=== PATIENT | female | born 1985 | race Caucasian/White ===

== ENCOUNTER 2017-03-01 05:35 | Emergency (ER) | payer OTHER ==
--- NOTE | 2017-03-01 07:22 | ED CLINICAL REPORT ---
Clinical Report - Physicians/Mid Levels [facility] [address] [place] [place] [address] 03/01/2017 5:35 [id number] Time Seen: 05:41 Mar 01 2017. Arrived- By private vehicle. Historian- patient. CPT: ER phys charges level 4 (#[id number]). HISTORY OF PRESENT ILLNESS Chief Complaint: ALLERGIC REACTION. This started today and is still present. The patient has had difficulty breathing, itching and swelling. A possible cause has been identified. She was recently exposed to food (as possible allergen) - (peppers). The patient was not assessed by EMS prior to arrival. (Took zyrtec at home and is feeling better.). Similar symptoms previously: As bad. Recent medical care: Not recently seen/assessed. REVIEW OF SYSTEMS No eye problems, sore throat, cough, sputum production or fever. No chills, joint pain, enlarged lymph nodes, weakness or numbness. No chest pain, palpitations, abdominal pain, vomiting or black stools. No urinary frequency or pain with urination. All systems otherwise negative, except as recorded above. PAST HISTORY Prior allergic reaction. Sinusitis. Eustachian Tube Dysfunction. Back Pain. Numbness to face after taking diclofenac.. Headache [RuleOut]. Stubbs's Palsy [RuleOut]. Depression [RuleOut]. Suicidal Ideation [RuleOut]. ADDITIONAL SURGERIES: . Tubal Ligation. Medications: None. Allergies: Augmentin. SOCIAL HISTORY Never smoker. Occasional alcohol use. No drug use. ADDITIONAL NOTES The nursing notes have been reviewed. PHYSICAL EXAM Vital Signs: 03/01/2017 05:37 BP: 134/79. HR: 87. RR: 20. O2 saturation: 100%. Temp: 98.4 F. Pain level now: 0/10. Appearance: Alert. No acute distress. Head and Neck: Normal external inspection. Eyes: Pupils equal, round and reactive to light. ENT: Ears normal. Nose normal. Pharynx normal. Voice normal. Neck: Neck supple. CVS: Normal heart rate and rhythm. Heart sounds normal. Respiratory: No respiratory distress. Breath sounds normal. No stridor or wheezes. Abdomen: Nontender. Skin: Skin warm. Extremities: Normal external inspection. Extremities nontender. Skin: Normal skin color. No rash. No urticaria. Neuro: Oriented X 3. No motor deficit. No sensory deficit. PROGRESS AND PROCEDURES Course of Care: Pt given meds due to sensation of swelling in the throat. Heplock Solumedrol 80 mg IV famotadine 40 mg IV Patient is stable. Symptoms much better. Patient/family counseled. Disposition: Discharged. Condition: stable and improved. CLINICAL IMPRESSION Allergic reaction with skin rash and angioedema secondary to food and peppers. INSTRUCTIONS Do not work for two days until better. (continue zyrtec for 2 days.). Prescription Medications: prednisone 40 mg a day for 2 days. Famotidine 40 mg po q day for 2 days. Follow-up: Follow up with your doctor in three days if not better. Understanding of the discharge instructions verbalized by patient and family. (Electronically signed by Andrea Palm MD 03/04/2017 21:16)
--- NOTE | 2017-03-01 07:22 | ED ORDER SUMMARY ---
..... Patient: GUI HERNÁNDEZ [facility]Sheet [facility] VisitID: [id number] [address] [place] [address] 31y, F Registration Date/Time: 03/01/2017 ORDER SHEET Weight: 97.0 kg (stated) Allergies: Augmentin GENERAL ORDERS: MEDICATION ORDERS: IV FLUIDS: Solu-MEDROL IV 80 mg (NOW) (05:03/01/2017 Tiago SHARPE) (Ack 5:43 HSoule) (5:55 HSoule) IV Saline Lock (:03/01/2017 Tiago SHARPE) (5:43 HSoule) Famotidine IV 40 mg/50mL (NOW) (:03/01/2017 Tiago SHARPE) (Ack 5:43 HSoule) (5:58 HSoule) ORDER SHEET NOTES: [Electronically signed by Kasia Ireland (23:49 03/01/2017)] [Electronically signed by Andrea Palm MD (21:16 03/04/2017)] [Electronically locked/signed by Kasia Ireland (23:49 03/01/2017)]
--- NOTE | 2017-03-01 07:22 | ED NURSING NOTES ---
Clinical Report - Nurses [facility] [address] [place] [address] 03/01/2017 5:35 [id number] TRI[facility] Triage time 05:37 Mar 01 2017. Acuity: LEVEL 3. Chief Complaint: ALLERGIC REACTION and SWELLING and DIFFICULTY BREATHING 05:42 03/01/17. ( Provider called to bedside). SEPSIS SCREEN: Sepsis Screen: negative. Negative (no infection suspected/documented). --05:42 Kasia Ireland 05:37 03/01/17. BP: 134/79. HR: 87. RR: 20. O2 saturation: 100% on room air. Temp: 98.4 F (oral). Pain level now: 0/10. --05:42 Kasia Ireland. Weight: 97 kg stated. Height/Length: 64 inches Per Patient. BMI: 36.7. --05:41 Kasia Ireland. Medications None. --05:39 Kasia Ireland. Medication/allergy information source: the patient. --05:42 Kasia Ireland. Allergies Augmentin. --05:40 Kasia Ireland. History Arrived by private vehicle. Historian: patient. Accompanied by family. Primary physician ([facility]). This started just prior to arrival. 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 She states last night she had a que pepper sauce that she believes had jalapeno in. Patient reports lip swelling and throat swelling that began around 0430 am. She states she took zyrtec and called family to bring her here. She denies previous anaphylaxis.). She has had itching and difficulty breathing. Treatment DIRECTOR OF PATIENT SAFETY: (zyrtec). PAST MEDICAL HX: Immunizations: up-to-date. Last normal menstrual period now. SOCIAL HX: Never smoker. Occasional alcohol use. No drug use. No infectious disease exposure. ABUSE ASSESSMENT: No report of abuse. FALL RISK ASSESSMENT: Fall risk assessment completed. No fall risk identified. NUTRITIONAL RISK ASSESSMENT: The nutritional risk assessment revealed no deficiencies. FUNCTIONAL ASSESSMENT: Functional assessment: no impairments noted. LEARNING NEEDS ASSESSMENT: The learning needs assessment revealed no barriers. SKIN INTEGRITY ASSESSMENT: Skin integrity risk assessment completed. No skin integrity risk identified. --05:42 Kasia Ireland. PROBLEMS: Sinusitis. Eustachian Tube Dysfunction. Back Pain. Numbness to face after taking diclofenac.. --05:40 Kasia Ireland Headache [RuleOut]. Stubbs's Palsy [RuleOut]. Depression [RuleOut]. Suicidal Ideation [RuleOut]. --05:40 Kasia Ireland. ADDITIONAL SURGERIES: . Tubal Ligation. --05:40 Kasia Ireland. Interventions ID band on patient. To treatment room. --05:42 Kasia Ireland. PHYSICAL ASSESSMENT Patient gowned. GENERAL / NEURO / PSYCH: Alert. The patient does not appear to be in acute distress. Oriented X 4. HEENT: No pharyngeal erythema. No facial swelling. Mucous membranes are pink. RESPIRATORY: Respirations not labored. Breath sounds within normal limits. CVS: Normal sinus rhythm noted. SKIN: Skin is intact, warm and dry. No skin rash. --05:43 Kasia Ireland. NURSING PROGRESS NOTES 05:43 03/01/2017 Site #1 started via IV in the right antecubital space with an 20g angiocath, with aseptic technique and good blood return; one attempt. Blood drawn: rainbow set. Labeled in the presence of the patient and held. Saline lock flushed with 10 mL saline. --05:43 Kasia Ireland 05:43 03/01/17. tipple greaser, pulse oximeter and NIBP monitor placed on patient; monitor alarms on. Patient gowned. Reassurance given to the patient. Two patient identifiers checked. Call light placed in reach. Side rails up x 1. Bed placed in lowest position. Brakes of bed on. Patient ready for evaluation- chart flagged and ED physician notified. --05:43 Kasia Ireland 05:55 03/01/2017 SOLU-MEDROL (MethylPREDNISolone Sodium Succ) IVP 80 mg given over 2 minute(s) via site #1. Allergies verified and confirmed 5 rights. IV patency established. IV site checked: no pain, redness, or swelling. IV flushed thoroughly pre- and post-medication administration. IVP given by RN. --05:55 Kasia Ireland 05:58 03/01/2017 Started 20 mg of Famotidine IVPB in bag #1 50 mL; at 25 mL/hr over 30 minute(s) via site #1 via IV pump. Allergies verified and confirmed 5 rights. --05:58 Kasia Ireland Reassessment after medication administered. Overall patient status- she states feels better. --06:21 Kasia Ireland 06:21 03/01/17. BP: 119/68. HR: 70. RR: 20. O2 saturation: 100% on room air. --06:21 Kasia Ireland. DISPOSITION / DISCHARGE 07:42 03/01/17. Condition at departure: improved and stable. No learning barriers present. Reviewed medication(s) side effects, precautions, dosing and course information. Prescription(s) given to the patient. Work note given. Patient and spouse verbalized understanding. Written instructions provided in Belgian. The patient was discharged by the physician. She was discharged home and accompanied by spouse. She left the Emergency Department ambulatory and via private vehicle. Spouse driving. --07:42 Ruthie Tahyer R.N. 07:39 03/01/17. BP: 117/89. HR: 90. RR: 16. O2 saturation: 99% on room air. Temp: 97.9 F (oral). Pain level now 2/10. --07:42 Ruthie Thayer R.N. Locked/Released at 03/01/2017 23:49 by Kasia Ireland,
--- NOTE | 2017-03-01 07:22 | ED CLINICAL REPORT ---
Clinical Report - Physicians/Mid Levels [facility] [address] [place] [address] 03/01/2017 5:35 [id number] Time Seen: 05:41 Mar 01 2017. Arrived- By private vehicle. Historian- patient. CPT: ER phys charges level 4 (#[id number]). HISTORY OF PRESENT ILLNESS Chief Complaint: ALLERGIC REACTION. This started today and is still present. The patient has had difficulty breathing, itching and swelling. A possible cause has been identified. She was recently exposed to food (as possible allergen) - (peppers). The patient was not assessed by EMS prior to arrival. (Took zyrtec at home and is feeling better.). Similar symptoms previously: As bad. Recent medical care: Not recently seen/assessed. REVIEW OF SYSTEMS No eye problems, sore throat, cough, sputum production or fever. No chills, joint pain, enlarged lymph nodes, weakness or numbness. No chest pain, palpitations, abdominal pain, vomiting or black stools. No urinary frequency or pain with urination. All systems otherwise negative, except as recorded above. PAST HISTORY Prior allergic reaction. Sinusitis. Eustachian Tube Dysfunction. Back Pain. Numbness to face after taking diclofenac.. Headache [RuleOut]. Stubbs's Palsy [RuleOut]. Depression [RuleOut]. Suicidal Ideation [RuleOut]. ADDITIONAL SURGERIES: . Tubal Ligation. Medications: None. Allergies: Augmentin. SOCIAL HISTORY Never smoker. Occasional alcohol use. No drug use. ADDITIONAL NOTES The nursing notes have been reviewed. PHYSICAL EXAM Vital Signs: 03/01/2017 05:37 BP: 134/79. HR: 87. RR: 20. O2 saturation: 100%. Temp: 98.4 F. Pain level now: 0/10. Appearance: Alert. No acute distress. Head and Neck: Normal external inspection. Eyes: Pupils equal, round and reactive to light. ENT: Ears normal. Nose normal. Pharynx normal. Voice normal. Neck: Neck supple. CVS: Normal heart rate and rhythm. Heart sounds normal. Respiratory: No respiratory distress. Breath sounds normal. No stridor or wheezes. Abdomen: Nontender. Skin: Skin warm. Extremities: Normal external inspection. Extremities nontender. Skin: Normal skin color. No rash. No urticaria. Neuro: Oriented X 3. No motor deficit. No sensory deficit. PROGRESS AND PROCEDURES Course of Care: Pt given meds due to sensation of swelling in the throat. Heplock Solumedrol 80 mg IV famotadine 40 mg IV Patient is stable. Symptoms much better. Patient/family counseled. Disposition: Discharged. Condition: stable and improved. CLINICAL IMPRESSION Allergic reaction with skin rash and angioedema secondary to food and peppers. INSTRUCTIONS Do not work for two days until better. (continue zyrtec for 2 days.). Prescription Medications: prednisone 40 mg a day for 2 days. Famotidine 40 mg po q day for 2 days. Follow-up: Follow up with your doctor in three days if not better. Understanding of the discharge instructions verbalized by patient and family. (Electronically signed by Andrea Palm MD 03/04/2017 21:16)
--- NOTE | 2017-03-01 07:22 | ED ORDER SUMMARY ---
..... Patient: GUI HERNÁNDEZ OrderSheet [facility] VisitID: [id number] [address] [place] [address] 31y, F Registration Date/Time: 03/01/2017 ORDER SHEET Weight: 97.0 kg (stated) Allergies: Augmentin GENERAL ORDERS: MEDICATION ORDERS: IV FLUIDS: Solu-MEDROL IV 80 mg (NOW) (05:03/01/2017 Tiago SHARPE) (Ack 5:43 HSoule) (5:55 HSoule) IV Saline Lock (:03/01/2017 Tiago SHARPE) (5:43 HSoule) Famotidine IV 40 mg/50mL (NOW) (:03/01/2017 Tiago SHARPE) (Ack 5:43 HSoule) (5:58 HSoule) ORDER SHEET NOTES: [Electronically signed by Kasia Ireland (23:49 03/01/2017)] [Electronically signed by Andrea Palm MD (21:16 03/04/2017)] [Electronically locked/signed by Kasia Ireland (23:49 03/01/2017)]
--- NOTE | 2017-03-01 07:22 | ED NURSING NOTES ---
Clinical Report - Nurses [facility] [address] [place] [address] 03/01/2017 5:35 [id number] TRI[facility] Triage time 05:37 Mar 01 2017. Acuity: LEVEL 3. Chief Complaint: ALLERGIC REACTION and SWELLING and DIFFICULTY BREATHING 05:42 03/01/17. ( Provider called to bedside). SEPSIS SCREEN: Sepsis Screen: negative. Negative (no infection suspected/documented). --05:42 Kasia Ireland 05:37 03/01/17. BP: 134/79. HR: 87. RR: 20. O2 saturation: 100% on room air. Temp: 98.4 F (oral). Pain level now: 0/10. --05:42 Kasia Ireland. Weight: 97 kg stated. Height/Length: 64 inches Per Patient. BMI: 36.7. --05:41 Kasia Ireland. Medications None. --05:39 Kasia Ireland. Medication/allergy information source: the patient. --05:42 Kasia Ireland. Allergies Augmentin. --05:40 Kasia Ireland. History Arrived by private vehicle. Historian: patient. Accompanied by family. Primary physician ([facility]). This started just prior to arrival. 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 She states last night she had a que pepper sauce that she believes had jalapeno in. Patient reports lip swelling and throat swelling that began around 0430 am. She states she took zyrtec and called family to bring her here. She denies previous anaphylaxis.). She has had itching and difficulty breathing. Treatment OPTICAL ELEMENT COATER: (zyrtec). PAST MEDICAL HX: Immunizations: up-to-date. Last normal menstrual period now. SOCIAL HX: Never smoker. Occasional alcohol use. No drug use. No infectious disease exposure. ABUSE ASSESSMENT: No report of abuse. FALL RISK ASSESSMENT: Fall risk assessment completed. No fall risk identified. NUTRITIONAL RISK ASSESSMENT: The nutritional risk assessment revealed no deficiencies. FUNCTIONAL ASSESSMENT: Functional assessment: no impairments noted. LEARNING NEEDS ASSESSMENT: The learning needs assessment revealed no barriers. SKIN INTEGRITY ASSESSMENT: Skin integrity risk assessment completed. No skin integrity risk identified. --05:42 Kasia Ireland. PROBLEMS: Sinusitis. Eustachian Tube Dysfunction. Back Pain. Numbness to face after taking diclofenac.. --05:40 Kasia Ireland Headache [RuleOut]. Stubbs's Palsy [RuleOut]. Depression [RuleOut]. Suicidal Ideation [RuleOut]. --05:40 Kasia Ireland. ADDITIONAL SURGERIES: . Tubal Ligation. --05:40 Kasia Ireland. Interventions ID band on patient. To treatment room. --05:42 Kasia Ireland. PHYSICAL ASSESSMENT Patient gowned. GENERAL / NEURO / PSYCH: Alert. The patient does not appear to be in acute distress. Oriented X 4. HEENT: No pharyngeal erythema. No facial swelling. Mucous membranes are pink. RESPIRATORY: Respirations not labored. Breath sounds within normal limits. CVS: Normal sinus rhythm noted. SKIN: Skin is intact, warm and dry. No skin rash. --05:43 Kasia Ireland. NURSING PROGRESS NOTES 05:43 03/01/2017 Site #1 started via IV in the right antecubital space with an 20g angiocath, with aseptic technique and good blood return; one attempt. Blood drawn: rainbow set. Labeled in the presence of the patient and held. Saline lock flushed with 10 mL saline. --05:43 Kasia Ireland 05:43 03/01/17. air sampling and monitoring, pulse oximeter and NIBP monitor placed on patient; monitor alarms on. Patient gowned. Reassurance given to the patient. Two patient identifiers checked. Call light placed in reach. Side rails up x 1. Bed placed in lowest position. Brakes of bed on. Patient ready for evaluation- chart flagged and ED physician notified. --05:43 Kasia Ireland 05:55 03/01/2017 SOLU-MEDROL (MethylPREDNISolone Sodium Succ) IVP 80 mg given over 2 minute(s) via site #1. Allergies verified and confirmed 5 rights. IV patency established. IV site checked: no pain, redness, or swelling. IV flushed thoroughly pre- and post-medication administration. IVP given by RN. --05:55 Kasia Ireland 05:58 03/01/2017 Started 20 mg of Famotidine IVPB in bag #1 50 mL; at 25 mL/hr over 30 minute(s) via site #1 via IV pump. Allergies verified and confirmed 5 rights. --05:58 Kasia Ireland Reassessment after medication administered. Overall patient status- she states feels better. --06:21 Kasia Ireland 06:21 03/01/17. BP: 119/68. HR: 70. RR: 20. O2 saturation: 100% on room air. --06:21 Kasia Ireland. DISPOSITION / DISCHARGE 07:42 03/01/17. Condition at departure: improved and stable. No learning barriers present. Reviewed medication(s) side effects, precautions, dosing and course information. Prescription(s) given to the patient. Work note given. Patient and spouse verbalized understanding. Written instructions provided in Armenian. The patient was discharged by the physician. She was discharged home and accompanied by spouse. She left the Emergency Department ambulatory and via private vehicle. Spouse driving. --07:42 Ruthie Thayer R.N. 07:39 03/01/17. BP: 117/89. HR: 90. RR: 16. O2 saturation: 99% on room air. Temp: 97.9 F (oral). Pain level now 2/10. --07:42 Ruthie Thayer R.N. Locked/Released at 03/01/2017 23:49 by Kasia Ireland,
--- NOTE | 2017-03-04 21:17 | ED MED RECONCILIATION SUMMARY ---
Patient: GUI HERNÁNDEZ Medication Reconciliation Report [facility] VisitID: [id number] [address] [place] [address] 31y, F Registration Date/Time: 03/01/2017 Weight: 97.0 kg Height/Length: 64 in. BMI: 36.7 ALLERGIES: Augmentin The patient's Home Medications are listed below: NONE. The source(s) of the original Home Medication information: patient The following Medications were given to the patient in the Emergency Department: SOLU-MEDROL [IVP] IVP 80 mg, administered: 03/01/2017 5:55:00 AM Famotidine [IVPB] IVPB bolus 0, then 20 mg 25 mL/hr, administered: 03/01/2017 5:58:00 AM The following Medications were prescribed to the patient: prednisone 40 mg a day for 2 days.Famotidine 40 mg po q day for 2 days. -- Andrea Palm MD
--- NOTE | 2017-03-04 21:17 | ED MED RECONCILIATION SUMMARY ---
Patient: GUI HERNÁNDEZ Medication Reconciliation Report [facility] VisitID: [id number] [address] [place] [address] 31y, F Registration Date/Time: 03/01/2017 Weight: 97.0 kg Height/Length: 64 in. BMI: 36.7 ALLERGIES: Augmentin The patient's Home Medications are listed below: NONE. The source(s) of the original Home Medication information: patient The following Medications were given to the patient in the Emergency Department: SOLU-MEDROL [IVP] IVP 80 mg, administered: 03/01/2017 5:55:00 AM Famotidine [IVPB] IVPB bolus 0, then 20 mg 25 mL/hr, administered: 03/01/2017 5:58:00 AM The following Medications were prescribed to the patient: prednisone 40 mg a day for 2 days.Famotidine 40 mg po q day for 2 days. -- Andrea Palm MD
--- NOTE | 2017-03-04 21:17 | ED MAR SUMMARY ---
..... Medication Administration Record [facility] [address] [place] [address] Patient: GUI HERNÁNDEZ Visit ID: [id number] 31y, F Weight: 97.0 kg Height/Length: 64 in BMI: 36.7 ALLERGIES: Augmentin Given 05:55 03/01/2017 Kasia Ireland, Medication Administered: SOLU-MEDROL [IVP] (METHYLPREDNISOLONE SODIUM SUCC), Dose: 80 mg IVP over 2 minute(s), Site: #1 right AC. Medication Ordered: Solu-MEDROL IV 80 mg (NOW). Start 05:58 03/01/2017 Kasia Ireland, Medication Administered: FAMOTIDINE [IVPB], Dose: 20 mg IVPB over 30 minute(s), Rate: 25 mL/hr, Dispensed: 50 mL bag, Site: #1 right AC. Medication Ordered: Famotidine IV 40 mg/50mL (NOW).
--- NOTE | 2017-03-04 21:17 | ED DISCHARGE INSTRUCTIONS ---
Patient: GUI HERNÁNDEZ General Instructions [facility] VisitID: [id number] [place] [address] 31y, F Registration Date/Time: 03/01/2017 Allergic reaction with skin rash and angioedema secondary to food and peppers. INSTRUCTIONS Do not work for two days until better. (continue zyrtec for 2 days.). Prescription Medications: prednisone 40 mg a day for 2 days. Famotidine 40 mg po q day for 2 days. Follow-up: Follow up with your doctor in three days if not better. Understanding of the discharge instructions verbalized by patient and family. ADDITIONAL INFORMATION Allergic Reaction,Generalized [Other] You are having an allergic reaction. This may cause an itchy rash, dizziness, fainting, trouble breathing or swallowing, and swelling of the face or other parts of the body. This can be caused by exposure to something in your surroundings that you have become sensitive to. This could be due to medicine or food. This could also be due to something you put on your skin or in your hair or something in the air. Often it is not possible to find out exactly what has caused your reaction. The goal of today's treatment is to relieve symptoms. The rash will usually fade over several days, but can sometimes last up to two weeks. Home Care: 1) If you know what you are allergic to, avoid it because future reactions could be worse than this one. 2) Avoid tight clothing and anything that heats up your skin (hot showers/baths, direct sunlight) since heat will make itching worse. 3) An ice pack will relieve local areas of intense itching and redness. Lanacaine cream or Solarcaine spray (or other product containing "benzocaine", available without a prescription) will reduce the itching. 4) Oral Benadryl (diphenhydramine) is an antihistamine available at drug and grocery stores. Unless a prescription antihistamine was given, Benadryl may be used to reduce itching if large areas of the skin are involved. Use lower doses during the daytime and higher doses at bedtime since the drug may make you sleepy. [NOTE: Do not use Benadryl if you have glaucoma or if you are a man with trouble urinating due to an enlarged prostate.] Claritin (loratidine) is an antihistamine that causes less drowsiness and is a good alternative for daytime use. Follow Up Follow Up with your doctor or this facility in two days if your symptoms do not continue to improve. If you had a severe reaction today, or if you have had several mild-moderate allergic reactions in the past, ask your doctor about allergy testing to find out what you are allergic to. If your reaction included dizziness, fainting or trouble breathing or swallowing, ask your doctor about carrying an Allergy Kit (injectable epinephrine) for home use. Get Prompt Medical Attention if any of the following occur: -- Trouble breathing or swallowing -- New or worse swelling in the face, eyelids, lips, mouth, tongue or throat -- Dizziness, weakness or fainting Angioedema Angioedema (zuzsrvrwnnoiqvo-y-[id number]) is a sudden appearance of swollen patches (edema) on the skin or mucous membranes. The swelling is painless and does not itch. It most often involves the face, lips, mouth, tongue, back of throat or vocal cords. It may also occur in other places such as the arms or legs. A rash may also appear during the first 4 days of this illness. The most common cause for this condition is a side-effect to a class of medicine calledACE inhibitor.This type of drug is used to treat high blood pressure. It includes captopril (Capoten), enalapril (Vasotec) and lisinopril (Prinivil, Zestril). Tell your doctor if you are taking any of these medicines. Other causes of angioedema include allergic reaction to something eaten, touched or inhaled. Angioedema may also be hereditary. In some cases, no cause can be found. Angioedema can lead to the swelling of the air passage in the mouth or throat. Severe swelling can block your breathing and cause . Your doctor believes that you are not at risk for this; however, be alert for early signs of increased swelling in the mouth or throat, or difficulty with swallowing or breathing. Angioedema may recur. It is therefore important to watch for the earliest signs of this condition (below). Return to the hospital promptly if swelling involves the face, mouth or throat areas. Home Care: Rest quietly today. No heavy exertion or excess physical activity. If you were told that your angioedema was from a medicine that you are taking, you must stop taking this medicine. Contact your doctor for a different one. In the future, advise medical staff that you are allergic to this medicine. If medicine was prescribed to treat angioedema (for example, steroids or antihistamines), take it as directed. Oral Benadryl (diphenhydramine) is an antihistamine available at drug and grocery stores. Unless another antihistamine was prescribed, Benadryl may be used to reduce swelling or itching. Use lower doses during the daytime and higher doses at bedtime since the drug may make you sleepy. [NOTE: Do not use Benadryl if you have glaucoma or if you are a man with trouble urinating due to an enlarged prostate.] Claritin (loratidine) is an antihistamine that causes less drowsiness and is a good alternative for daytime use. Follow Up with your doctor or as advised by our staff. Get Prompt Medical Attention if any of the following occur: Increase in swelling of lip, mouth, tongue or throat Trouble swallowing Trouble breathing Severe abdominal pains Hives Hives is an itchy red rash that can appear suddenly and move about your body. It goes away in one place and comes back in another. This is usually caused by something that you are allergic to such as: EATING: fruit, shellfish, chocolate, nuts, tomatoes or medicine BREATHING: pollens, animal hair/fur or mold spores Exposure to cold air, sun rays or exercise can sometimes cause an attack. Many times we cannot find a cause. Medicines can be used to reduce itching and swelling. The rash will usually fade over several days, but can sometimes last up to two weeks. Home Care: 1) Do not wear tight clothing and do not take hot baths/showers since heat can make the itching worse. 2) An ice pack (ice cubes in a plastic bag, wrapped in a towel) will reduce local areas of redness and itching. Lanacaine cream or Solarcaine spray (or other product containing "benzocaine") will reduce itching. 3) Oral Benadryl (diphenhydramine) is an antihistamine available at drug and grocery stores. Unless a prescription antihistamine was given, Benadryl may be used to reduce itching if large areas of the skin are involved. Use lower doses during the daytime and higher doses at bedtime since the drug may make you sleepy. [NOTE: Do not use Benadryl if you have glaucoma or if you are a man with trouble urinating due to an enlarged prostate.] Claritin (loratadine) is an antihistamine that causes less drowsiness and is a good alternative for daytime use. 4) If you know what you are sensitive to, avoid this substance. Future reactions could be worse than this one. Follow Up with your doctor as directed by our staff, if symptoms do not begin to improve in two days. If you have had a severe reaction, or have had several episodes of hives, then ask your doctor about allergy testing to find out what you are allergic to. Get Prompt Medical Attention if any of the following occur: -- Trouble breathing or swallowing -- New or increased swelling in the face, lips, tongue or throat -- Dizziness, weakness or fainting You have been given the following additional information: Allergic Reaction, Other (General) Angioedema Hives Do not work for two days until better. (Electronically signed by Andrea Palm MD 03/04/2017 21:16)
--- NOTE | 2017-03-04 21:17 | ED MAR SUMMARY ---
..... Medication Administration Record [facility] [address] [place] [address] Patient: GUI HERNÁNDEZ Visit ID: [id number] 31y, F Weight: 97.0 kg Height/Length: 64 in BMI: 36.7 ALLERGIES: Augmentin Given 05:55 03/01/2017 Kasia Ireland, Medication Administered: SOLU-MEDROL [IVP] (METHYLPREDNISOLONE SODIUM SUCC), Dose: 80 mg IVP over 2 minute(s), Site: #1 right AC. Medication Ordered: Solu-MEDROL IV 80 mg (NOW). Start 05:58 03/01/2017 Kasia Ireland, Medication Administered: FAMOTIDINE [IVPB], Dose: 20 mg IVPB over 30 minute(s), Rate: 25 mL/hr, Dispensed: 50 mL bag, Site: #1 right AC. Medication Ordered: Famotidine IV 40 mg/50mL (NOW).
== END 2017-03-01 07:42 | disposition home or self-care (01) ==
LOC: ED SRH 05:35 → EKG SRH 05:35 → ED SRH 07:42
DX: T78.3XXA Angioneurotic edema, initial encounter (principal); L27.2 Dermatitis due to ingested food; Z88.0 Allergy status to penicillin